=== PATIENT | female | born 1955 | race Caucasian/White ===

== ENCOUNTER 2021-03-26 12:00 | Day surgery (SDC) | payer OTHER, SELFPAY ==
[~2021-03-26] VITALS: Ht 154.9 cm; Wt 53.5 kg
[2021-03-26] MEDS ORDERED: NS 250 ML IV.SOLN IV ONE (15:00)
[2021-03-26] MEDS ORDERED: NS IRRIG SOLN 1000 ML IR ONE (15:00)
[2021-03-26] MEDS ORDERED: WATER FOR IRRIGATION,STERILE 1,000 ML IRRIG.SOLN IR ONE (15:00)
[2021-03-26] MEDS ORDERED: NS 500 ML IV.SOLN IV ONE (15:00)
[2021-03-26] MEDS ORDERED: ARTICAINE HCL/EPINEPHRINE 4%/1:200,000 BIT 1.7 ML CARTRIDGE IJ ONE (15:00)
[2021-03-26 16:31] VITALS: BP_SYST 129
== END 2021-03-26 17:00 | disposition home or self-care (01) ==
LOC: SDS 12:00
PROVIDERS: ATTEND Dentist General Practice
DX: M27.2 Inflammatory conditions of jaws (principal); M89.8X0 Other specified disorders of bone, multiple sites; M26.603 Bilateral temporomandibular joint disorder, unspecified; M79.10 Myalgia, unspecified site; J01.01 Acute recurrent maxillary sinusitis; M85.9 Disorder of bone density and structure, unspecified; K12.2 Cellulitis and abscess of mouth; Z79.899 Other long term (current) drug therapy; Z20.822 Contact with and (suspected) exposure to COVID-19
CPT/HCPCS: 21026; 21215; 21248; 36415; 70140; 87426; C1713 ×2; J7040; J7050

== ENCOUNTER 2021-04-03 10:25 | Day surgery (SDC) | payer OTHER, SELFPAY ==
[~2021-04-03] VITALS: Ht 154.9 cm; Wt 53.1 kg
[2021-04-03] MEDS ORDERED: ARTICAINE HCL/EPINEPHRINE 4%/1:200,000 BIT 1.7 ML CARTRIDGE IJ ONE (13:15)
[2021-04-03] MEDS ORDERED: NS 500 ML IV.SOLN IV ONE (13:15)
[2021-04-03] MEDS ORDERED: NS 100 ML BAG ONE (13:15)
[2021-04-03] MEDS ORDERED: NS IRRIG SOLN 1000 ML IR ONE (13:15)
[2021-04-03 15:16] VITALS: BP_SYST 101
== END 2021-04-03 15:36 | disposition home or self-care (01) ==
LOC: SDS 10:25 → SMU 10:26 → SDS 15:36
PROVIDERS: ATTEND Dentist General Practice
DX: M27.2 Inflammatory conditions of jaws (principal); M89.8X0 Other specified disorders of bone, multiple sites; M26.603 Bilateral temporomandibular joint disorder, unspecified; J01.01 Acute recurrent maxillary sinusitis; M85.9 Disorder of bone density and structure, unspecified; K05.222 Aggressive periodontitis, generalized, moderate; K12.2 Cellulitis and abscess of mouth; M06.9 Rheumatoid arthritis, unspecified; E11.9 Type 2 diabetes mellitus without complications; Z79.899 Other long term (current) drug therapy; Z20.822 Contact with and (suspected) exposure to COVID-19
CPT/HCPCS: 21025; 21215; 21249; 36415; 87426; C1713 ×2; J7040